=== PATIENT | female | born 1990 | race Caucasian/White ===

== ENCOUNTER → 2016-08-05 | Outpatient (CLI) | payer MEDICARE, MEDICAID ==
[2016-08-05 09:03] LABS: CREATININE 0.9 mg/dL (0.5-1.1); ESTIMATED GFR (MDRD EQUATION) > 60
== END | disposition disaster alternative care site (69) ==
LOC: GLAB 08:00 → GRAD 08:15
PROVIDERS: Ophthalmology
DX: H57.11 Ocular pain, right eye (principal); G93.89 Other specified disorders of brain
CPT/HCPCS: A9577